=== PATIENT | male | born 1960 | race Caucasian/White ===

== ENCOUNTER 2016-08-28 17:56 | Emergency (ER) | payer OTHER ==
[~2016-08-28] VITALS: Ht 172.7 cm; Wt 86.2 kg
[~2016-08-28 17:56] MED LIST: HYDROXYZINE50 MG PO; MOTRIN800 MG PO
--- NOTE | 2016-08-28 18:54 | ED CARDIAC/CP/PALPITATIONS ---
History of Present Illness General Chief Complaint: Chest Pain Stated Complaint: CP, X 1 HR Source: patient Exam Limitations: no limitations Allergies Coded Allergies: Penicillins (Intermediate, HIVES 08/28/16) Reconcile Medications Methadone HCl 5 MG/5 ML SOLUTION 155 MG PO DAILY CHRONIC PAIN/MENTAL HEALTH ( Reported) Multivit-Min/FA/Lycopen/Lutein (Centrum Silver Ultra Men's Tab) 300 MCG-600 MCG- 300 MCG TABLET 1 TAB PO DAILY SUPPLEMENT (Reported) Triage Note: PT TO ED FOR INTERMITTENT CP THAT BEGAN TODAY, REPORTING HE WAS AT HOME GETTING READY FOR WORK AND FELT THOUGH HE WAS GOING TO PASS OUT, STATING HE SAT DOWN AND FEELING WENT AWAY BUT "MY CHEST HURT SO BAD, LIKE SO SO BAD." PT REPORTING SLIGHT DIAPHORESIS, DENIES NAUSEA, REPORTING RESTING MAKES PAIN BETTER. PT STATING HE HAS BEEN FEELING EXTREMELY ANXIOUS LATELY, PT APPEARS VERY ANXIOUS. Triage Nurses Notes Reviewed? yes HPI: This patient is a 55-year-old male with past medical history including IV drug abuse currently on methadone who presented to the emergency department today for evaluation of intermittent chest pain. The patient reported that over the last 3 weeks, "I have not been feeling right. I can't label on it, I just have not been feeling right." He reported that he has been getting intermittent left- sided chest pain and shortness of breath. The patient also reported that he has been feeling sweaty. He reported that a couple days ago he felt nauseous and was dry heaving. The patient reported that at approximately 5:00 this evening he developed severe, 10 out of 10 left-sided chest pain which radiated down his left arm into his hand. He reported that he has been having occipital and neck pain intermittently. The patient also reported intermittent headaches over the last few weeks. He denied any fevers, chills, jaw pain, back pain, numbness or tingling in his extremities, or any other associated symptoms. The patient did not take any medication for his symptoms prior to arrival in the emergency department. He does not have a title examiner. He does not have a primary care physician. (YULIYA FERRERA,SABRINA) Vital Signs & Intake/Output Vital Signs & Intake/Output Vital Signs Date Time Temp Pulse Resp B/P Pulse O2 O2 Flow FiO2 Ox Delivery Rate 08/29 0318 96.8 70 18 136/81 97 Room Air 08/28 2256 57 18 161/84 99 08/287 65 18 191/99 98 Nasal 2.0L Cannula 08/28 1851 97 Room Air 08/28 1811 98.2 98 16 192/79 98 Room Air ED Intake and Output 08/29 0000 08/28 1200 Intake Total Output Total Balance Patient 190 lb Weight Past History Travel History Traveled to [place] past 21 day No Medical History Any Pertinent Medical History? see below for history Neurological: NONE EENT: NONE Cardiovascular: NONE Respiratory: NONE Gastrointestinal: NONE Hepatic: NONE Renal: NONE Musculoskeletal: fracture, sciatica Psychiatric: OPIATE ABUSE Blood Disorders: NONE Other Medical Hx: IV drug use, History of MRSA: No History of VRE: No History of CDIFF: No Pneumonia Vaccine: 06/01/11 Influenza Vaccine: 05/23/13 Tetanus Vaccine: 10/03/14 Surgical History Surgical History: BILAT KNEE SX LT WRIST SX Psychosocial History Who do you live with Mother Services at Home None What is your primary language Tajik Tobacco Use: Current Daily Use Daily Tobacco Use Amount/Type: => 5 Cigarettes daily ETOH Use: occasional use Illicit Drug Use: denies illicit drug use Family History Family History, If Any: SISTER (type one diabetes, with retinopathy, neuropathy). FATHER (emphysema). . Hx Contributory? No (SABRINA DWYER PA-C) Review of Systems Review of Systems Constitutional: Reports: see HPI. EENTM: Reports: no symptoms. Respiratory: Reports: see HPI. Cardiovascular: Reports: see HPI. GI: Reports: see HPI. Genitourinary: Reports: no symptoms. Musculoskeletal: Reports: see HPI. Skin: Reports: no symptoms. Neurological/Psychological: Reports: see HPI. All Other Systems: Reviewed and Negative (SABRINA DWYER PA-C) Physical Exam Physical Exam Cardiovascular: regular rate/rhythm, normal peripheral pulses, no murmurs, rubs, or gallops. No JVD. No carotid bruits Comments: Well-developed well-nourished person who appears anxious HEENT: Normal EENT exam, moist mucous membranes PERRLA bilaterally Neck: Supple, no lymphadenopathy. No midline tenderness Back: Normal inspection Respiratory: Chest nontender. No respiratory distress. Breath sounds clear to auscultation bilaterally with no wheezes, rales, or rhonchi Abdomen: Soft, nontender and nondistended with normoactive bowel sounds. No organomegaly appreciated Extremity: No edema, no calf tenderness to palpation, normal and equal pulses. Neuro: Alert oriented x3, cranial nerves II through XII grossly intact. Skin: No appreciable rash on exposed skin, skin is warm and dry. Psych: Mood and affect is normal Core Measures ACS in differential dx? Yes Severe Sepsis Present: No Septic Shock Present: No (YULIYA FERRERA,SABRINA) Progress Differential Diagnosis: AMI, aortic dissection, atrial fibrillation, cholecystitis, CHF/pulm edema, costochondritis, hyperkalemia, hyperthyroid, hyperventilation, musculoskeletal pain, myocarditis, pancreatitis, pericarditis, pneumonia, pneumothorax, PSVT, pulmonary embolism, PUD/GERD, PVCs/PACs, sepsis, unstable angina Diagnostic Imaging: Viewed by Me: Radiology Read. Discussed w/RAD: Radiology Read. CXR Impression: PATIENT: FOSTER ROBERTS PRESENT AGE: 55 PATIENT ACCOUNT NO: [id number] : 58 LOCATION: [facility] ORDERING PHYSICIAN: SABRINA DWYER PA-C SERVICE DATE: 08/28/16 EXAM TYPE: RAD - XRY- PORTABLE CHEST XRAY EXAMINATION: XR PORTABLE CHEST CLINICAL INFORMATION: Cardiomegaly. Chest pain. Shortness of breath. COMPARISON: Chest x-ray 2010 TECHNIQUE: Portable view of the chest was obtained. 8:19 PM FINDINGS: No significant abnormality is noted involving the heart, lungs, mediastinum, bony thorax or soft tissues. IMPRESSION: No acute abnormality of the chest. DICTATED BY: DNAILO CHILEL MD DATE/TIME DICTATED:08/28/162101 WATCH REPAIRER:RONY DATE/TIME TRANSCRIBED:08/28/162101 CONFIDENTIAL, DO NOT COPY WITHOUT APPROPRIATE AUTHORIZATION. <Electronically signed in Other Vendor System> SIGNED BY: DANILO CHILEL MD 08/28/162106 Initial ED EKG: normal axis, normal intervals, LVH, nonspecific ST T wave chg, 99 BEATS PER MINUTE Repeat EKG: unchanged (55 bpm, LVH) Hand-Off Endorsed To: CRISTOBAL YU,SIMRAN Villegas Endorsed Time: 0104 Pending: labs Comments: 08/28/2016 6:53:06 PM: Dr. Shaw was at the patient's bedside for [id number]-[id number] evaluation. There are acute changes of this patient's EKG compared to prior. This patient does not have a title examiner or a primary care physician. 08/28/2016 7:36:16 PM: Dr. Shaw spoke to on-call title examiner to discuss this patient's EKG. RN still attempting to obtain IV access. 08/28/2016 9:28:02 PM: Troponin 0.02. D-dimer not elevated. No increase in white blood cell count. I was at the patient's bedside for reevaluation and to update him on his imaging and laboratory results. The patient reported that his pain is not as severe as it was before. He is currently on 2 L nasal cannula of oxygen and received an aspirin. Unable to obtain IV access, so this patient did not receive nitroglycerin. He will stay here in the emergency department for a second troponin drawn at 12:08 AM and a repeat EKG. 08/29/2016 1:04:46 AM: Repeat EKG was unchanged from prior. Patient is currently resting comfortably on the stretcher. Awaiting repeat troponin. This patient will be stable for discharge his troponin level is unchanged from the first and stable for cardiology follow-up. (YULIYA FERRERA,SABRINA) Plan of Care: Orders Procedure Date/time Status TROPONIN LEVEL 08/29 0005 Complete EKG 08/29 0005 Active Add-on Test (ER Only) 08/28 190 Active Add-on Test (ER Only) 08/28 190 Active Telemetry/Nursery Supervisor 08/28 184 Active THYROID STIMULATING HORMONE 08/28 184 Complete TROPONIN LEVEL 08/28 184 Complete MAGNESIUM 08/28 184 Complete LIPID PANEL 08/28 184 Complete LACTIC ACID 08/28 184 Complete FREE T4 08/28 184 Complete D-DIMER 08/28 184 Complete COMPREHENSIVE METABOLIC PANEL 08/28 184 Complete CBC WITHOUT DIFFERENTIAL 08/28 184 Complete EKG 08/28 1757 Active Laboratory Tests 08/29/16 0105: Troponin I 0.02 08/28/16 2145: Lactic Acid Cancelled 08/28/16 2008: Anion Gap 9, Estimated GFR > 60, BUN/Creatinine Ratio 20.0, Glucose 81, Lactic Acid 0.7, Calcium 9.3, Magnesium 1.8, Total Bilirubin 0.7, AST 30, ALT 31, Alkaline Phosphatase 58, Troponin I 0.02, Total Protein 7.4, Albumin 4.4, Globulin 3.0, Albumin/Globulin Ratio 1.5, Triglycerides 86, Cholesterol 154, LDL Cholesterol, Calc 71, HDL Cholesterol 66 H, Cholesterol/HDL Ratio 2, TSH 0.650, Free T4 1.51, D-Dimer < 200, CBC w Diff NO MAN DIFF REQ, RBC 3.95 L, MCV 92.9, MCH 31.6 H, RDW 13.2, MPV 8.6, Gran % 83.3 H, Lymphocytes % 12.2 L, Monocytes % 4.0, Eosinophils % 0.3, Basophils % 0.2, Absolute Granulocytes 7.3 H, Absolute Lymphocytes 1.1 L, Absolute Monocytes 0.4, Absolute Eosinophils 0, Absolute Basophils 0, PUBS MCHC 34.1 Departure Departure Disposition: HOME OR SELF CARE Condition: Stable Clinical Impression Primary Impression: Chest pain Qualifiers: Chest pain type: unspecified Qualified Code: R07.9 - Chest pain, unspecified [facility] PAT[facility] HAS NO PRIMARY CARE DR (PCP/Family) Additional Instructions: Please follow-up with the title examiner whose information has been provided to in this packet. Please return to the emergency department for any worsening symptoms or concerns. Departure Forms: Customer Survey General Discharge Information (SABRINA DWYER PA-C) PA/TECHNICIAN HELPER INSTRUMENT Co-Sign Statement Statement: ED Attending supervision documentation- [X I saw and evaluated the patient. I have also reviewed all the pertinent lab results and diagnostic results. I agree with the findings and the plan of care as documented in the PA's/TECHNICIAN HELPER INSTRUMENT's documentation. EKG #2 UNCHANGED.... TROP#2 NEGATIVE.... PT HAS BEEN CHEST PAIN FREE IN ed... HE IS SAFE FOR DISCHARGE AND WILL FOLLOW UP WITH SQUADRON WORKER. [] I have reviewed the ED Record and agree with the PA's/TECHNICIAN HELPER INSTRUMENT's documentation. [] Additions or exceptions (if any) to the PAs/TECHNICIAN HELPER INSTRUMENT's note and plan are summarized below: [] (CRISTOBAL YU,SIMRAN Villegas) Critical Care Note Critical Care Note Critical Care Time: non-applicable (SABRINA DWYER PA-C)
[2016-08-28] MEDS ORDERED: METHADONE H5 MG/5 M2 PO (19:10)
[2016-08-28] MEDS ORDERED: CENTRUM SILVER1 EAC2 PO (19:11)
[2016-08-28 20:21] LABS: ABSOLUTE BASOPHIL COUNT 0 /CUMM (0.0-0.2); ABSOLUTE EOSINOPHIL COUNT 0 /CUMM (0.0-0.7); ABSOLUTE GRANULOCYTE CT 7.3 /CUMM (1.4-6.5); ABSOLUTE LYMPH COUNT 1.1 /CUMM (1.2-3.4); ABSOLUTE MONOCYTE COUNT 0.4 /CUMM (0.10-0.60); BASOPHIL % 0.2 % (0.0-2.0); EOSINOPHIL % 0.3 % (0-5); GRANULOCYTE % 83.3 % (42.2-75.2); HEMATOCRIT 36.7 % (42-52); MEAN CORPUSCULAR HGB 31.6 PG (27.0-31.0); MEAN CORPUSCULAR HGB CONC 34.1 G/DL (33.0-37.0); MEAN CORPUSCULAR VOLUME 92.9 FL (80.0-94.0); MEAN PLATELET VOLUME 8.6 FL (7.4-10.4); PLATELET COUNT 160 /CUMM (130-400); RBC DISTRIBUTION WIDTH 13.2 % (11.5-14.5); RED BLOOD CELL CT 3.95 /CUMM (4.70-6.10); WHITE BLOOD CELL COUNT 8.7 /CUMM (4.8-10.8)
--- NOTE | 2016-08-28 21:07 | RADIOLOGY REPORT ---
EXAMINATION: XR PORTABLE CHEST CLINICAL INFORMATION: Cardiomegaly. Chest pain. Shortness of breath. COMPARISON: Chest x-ray 04/13/2011 TECHNIQUE: Portable view of the chest was obtained. 8:19 PM FINDINGS: No significant abnormality is noted involving the heart, lungs, mediastinum, bony thorax or soft tissues. IMPRESSION: No acute abnormality of the chest.
[2016-08-29 03:18] VITALS: BP 136/81
== END 2016-08-29 03:19 ==
LOC: ERH 17:56
PROVIDERS: Physician Assistant
DX: R07.9 Chest pain, unspecified (principal)
CPT/HCPCS: 93005; 93010